=== PATIENT | male | born 1970 | race Caucasian/White ===

== ENCOUNTER 2018-01-15 22:34 | Emergency (ER) | payer BC, OTHER ==
--- NOTE | 2018-01-15 22:40 | EDM.PDOC ---
ED HPI GENERAL MEDICAL PROBLEM - General Stated Complaint: STROKE Time Seen by Provider: 01/15/18 22:40 Source of Information: Reports: Patient - History of Present Illness INITIAL COMMENTS - FREE TEXT/NARRATIVE: HISTORY AND PHYSICAL: History of present illness: [Patient presents via [facility], there were in route to [place] or [place] via helicopter however had to turn around due to fog/whether. Last known well time of the patient was 6:50pm. he arrived at our facility at 10:35pm, he was within the TPA window we did obtain CT head rapidly there are no findings on the noncontrasted head CT however his blood pressure was uncontrolled and quite high contraindicating TPA we did initiate labetalol 20 mg followed by 40 mg with a drip. Blood pressure was controlled cold within the TPA guidelines have high 170s over 109. This was achieved right at the 4-1/2 hour extended window the patient was offered TPA risks and benefits were discussed he refused TPA at that time. I had been in contact with Dr. Landin neurologist at [facility] around 11 PM he was in agreement with giving TPA if blood pressure can be controlled and would then be taking the patient however with the patient refusal for TPA he recommended CTA of the head with thromboembolic event suspected in basilar artery recommends transferring onto [place]. I did speak with Dr. Taylor neurosurgeon on-call at [facility] who would accept the patient, patient is agreeable to thrombectomy he is within the window for this procedure Current no fever nausea vomiting chills sweats no chest pain shortness breath headache dizziness or palpitation no bowel or urine symptoms Patient has been noncompliant with medications he admits to dyslipidemia states he has no other history of chronic illness or disease denies medications or surgical procedures Review of systems: As per history of present illness and below otherwise all systems reviewed and negative. Past medical history: As per history of present illness and as reviewed below otherwise noncontributory. Surgical history: As per history of present illness and as reviewed below otherwise noncontributory. Social history: No reported history of drug or alcohol abuse. Family history: As per history of present illness and as reviewed below otherwise noncontributory. Physical exam: HEENT: Atraumatic, normocephalic, pupils reactive, negative for conjunctival pallor or scleral icterus, mucous membranes moist, throat clear, neck supple, nontender, trachea midline. Lungs: Clear to auscultation, breath sounds equal bilaterally, chest nontender. Heart: S1S2, regular, negative for clicks, rubs, or JVD. Abdomen: Soft, nondistended, nontender. Negative for masses or hepatosplenomegaly. Negative for costovertebral tenderness. Pelvis: Stable nontender. Genitourinary: Deferred. Rectal: Deferred. Extremities: Atraumatic, negative for cords or calf pain. Neurovascular unremarkable. Neuro: Awake, alert, oriented. Cranial nerve VII weakness on right right upper extremity flaccid paralysis 4 out of 5 weakness right lower extremity Cerebellum unremarkable. Motor and sensory unremarkable throughout. Exam nonfocal. Diagnostics: [CBC CMP UA troponin INR EKG Chest [address] no contrast CTA head CTA neck ] Therapeutics: [Labetalol 20 mg IV per [employer] per my instruction Labetalol 40 mg IV now Labetalol drip ] Impression: Right upper extremity flaccid paralysis Dysarthria Right lower extremity weakness Stroke scale 12 Patient will be transferred by [facility] fixed wing to [facility] Dr. Buenrostro Definitive disposition and diagnosis as appropriate pending reevaluation and review of above. Head Pain Score (Numeric/FACES): 5 - Related Data Allergies Allergy/AdvReac Type Severity Reaction Status Date / Time No Known Allergies Allergy Verified 01/15/18 23:09 Home Meds: Home Meds . [No Known Home Meds] 01/15/18 [History] ED ROS GENERAL - Review of Systems Review Of Systems: ROS reveals no pertinent complaints other than HPI. ED EXAM, GENERAL - Physical Exam Exam: See Below Course - Vital Signs Last Recorded V/S: Last Vital Signs Temp 98.1 F 01/15/18 22:37 Pulse 74 01/15/18 23:40 Resp 18 01/15/18 23:40 BP 194/119 H 01/15/18 23:40 Pulse Ox 97 01/15/18 23:40 - Orders/Labs/Meds Orders: Active Orders 24 hr Category Date Time Status EKG Documentation Completion [RC] STAT Care 01/15/18 22:37 Active Ang Head [CT] Stat Exams 01/15/18 23:40 Taken CTA Neck W & W/O Contrast [Ang Neck] [CT] Stat Exams 01/15/18 23:40 Taken Chest 1V Frontal [CR] Stat Exams 01/15/18 22:37 Taken Head wo Cont [CT] Stat Exams 01/15/18 22:37 Taken Labetalol [Normodyne] 100 mg Med 01/15/18 23:00 Active Sodium Chloride 0.9% [Normal Saline] 80 ml IV TITRATE niCARdipine/Normal Saline [Cardene 20 MG in NS 200 ML] Med 01/15/18 23:30 Active 20 mg in 200 ml IV TITRATE Medication Orders Labetalol HCl 100 mg/ Sodium (Chloride) 100 mls @ 30 mls/hr IV TITRATE TASHA; 0.5 MG/MIN PRN Reason: Protocol Last Admin: 01/15/18 23:10 Dose: 0.5 mg/min, 30 mls/hr Nicardipine HCl (Cardene 20 Mg In Ns 200 Ml) 20 mg in 200 mls @ 50 mls/hr IV TITRATE TASHA; 5 MG/HR PRN Reason: Protocol Last Admin: 01/15/18 23:24 Dose: 5 mg/hr, 50 mls/hr Labs: Laboratory Tests 01/15/18 01/15/18 01/15/18 Range/Units 21:25 22:36 22:36 WBC 14.93 H (4.0-11.0) K/uL RBC 5.43 (4.50-5.90) M/uL Hgb 16.7 (13.0-17.0) g/dL Hct 48.2 (38.0-50.0) % MCV 88.8 (80.0-98.0) fL MCH 30.8 (27.0-32.0) pg MCHC 34.6 (31.0-37.0) g/dL RDW Std Deviation 43.5 (28.0-62.0) fl RDW Coeff of [place] 14 (11.0-15.0) % Plt Count 233 (150-400) K/uL MPV 10.80 (7.40-12.00) fL Neut % (Auto) 76.8 (48.0-80.0) % Lymph % (Auto) 15.7 L (16.0-40.0) % [place] % (Auto) 6.1 (0.0-15.0) % Eos % (Auto) 1.1 (0.0-7.0) % Baso % (Auto) 0.3 (0.0-1.5) % Neut # (Auto) 11.5 H (1.4-5.7) K/uL Lymph # (Auto) 2.3 (0.6-2.4) K/uL [place] # (Auto) 0.9 H (0.0-0.8) K/uL Eos # (Auto) 0.2 (0.0-0.7) K/uL Baso # (Auto) 0.0 (0.0-0.1) K/uL Nucleated RBC % 0.0 /100WBC Nucleated RBCs # 0 K/uL INR 0.98 Sodium (136-148) mmol/L Potassium (3.5-5.1) mmol/L Chloride (98-107) mmol/L Carbon Dioxide (21.0-32.0) mmol/L BUN (7.0-18.0) mg/dL Creatinine (0.8-1.3) mg/dL Est Cr Clr Drug Dosing Estimated GFR (MDRD) ml/min Glucose (74-106) mg/dL Calcium (8.5-10.1) mg/dL Total Bilirubin (0.2-1.0) mg/dL AST (15-37) IU/L ALT (14-63) IU/L Alkaline Phosphatase (46-116) U/L Troponin I (0.000-0.056) ng/mL Total Protein (6.4-8.2) g/dL Albumin (3.4-5.0) g/dL Globulin (2.0-3.5) g/dL Albumin/Globulin Ratio (1.3-2.8) Urine Color YELLOW Urine Appearance CLEAR Urine pH 6.0 (5.0-8.0) Ur Specific [place] 1.025 (1.001-1.035) Urine Protein TRACE (NEGATIVE) mg/dL Urine Glucose (UA) 250 H (NEGATIVE) mg/dL Urine Ketones NEGATIVE (NEGATIVE) mg/dL Urine Occult Blood NEGATIVE (NEGATIVE) Urine Nitrite NEGATIVE (NEGATIVE) Urine Bilirubin NEGATIVE (NEGATIVE) Urine Urobilinogen 0.2 (<2.0) EU/dL Ur Leukocyte Esterase NEGATIVE (NEGATIVE) Urine RBC 0-2 (0-2/HPF) Urine WBC 0-1 (0-5/HPF) Ur Epithelial Cells RARE (NONE-FEW) Urine Bacteria FEW (NEGATIVE) 01/15/18 Range/Units 22:36 WBC (4.0-11.0) K/uL RBC (4.50-5.90) M/uL Hgb (13.0-17.0) g/dL Hct (38.0-50.0) % MCV (80.0-98.0) fL MCH (27.0-32.0) pg MCHC (31.0-37.0) g/dL RDW Std Deviation (28.0-62.0) fl RDW Coeff of [place] (11.0-15.0) % Plt Count (150-400) K/uL MPV (7.40-12.00) fL Neut % (Auto) (48.0-80.0) % Lymph % (Auto) (16.0-40.0) % [place] % (Auto) (0.0-15.0) % Eos % (Auto) (0.0-7.0) % Baso % (Auto) (0.0-1.5) % Neut # (Auto) (1.4-5.7) K/uL Lymph # (Auto) (0.6-2.4) K/uL [place] # (Auto) (0.0-0.8) K/uL Eos # (Auto) (0.0-0.7) K/uL Baso # (Auto) (0.0-0.1) K/uL Nucleated RBC % /100WBC Nucleated RBCs # K/uL INR Sodium 139 (136-148) mmol/L Potassium 4.0 (3.5-5.1) mmol/L Chloride 105 (98-107) mmol/L Carbon Dioxide 23.3 (21.0-32.0) mmol/L BUN 11 (7.0-18.0) mg/dL Creatinine 1.1 (0.8-1.3) mg/dL Est Cr Clr Drug Dosing TNP Estimated GFR (MDRD) > 60.0 ml/min Glucose 182 H (74-106) mg/dL Calcium 9.0 (8.5-10.1) mg/dL Total Bilirubin 0.3 (0.2-1.0) mg/dL AST 27 (15-37) IU/L ALT 45 (14-63) IU/L Alkaline Phosphatase 95 (46-116) U/L Troponin I < 0.050 (0.000-0.056) ng/mL Total Protein 7.3 (6.4-8.2) g/dL Albumin 3.8 (3.4-5.0) g/dL Globulin 3.5 (2.0-3.5) g/dL Albumin/Globulin Ratio 1.1 L (1.3-2.8) Urine Color Urine Appearance Urine pH (5.0-8.0) Ur Specific [place] (1.001-1.035) Urine Protein (NEGATIVE) mg/dL Urine Glucose (UA) (NEGATIVE) mg/dL Urine Ketones (NEGATIVE) mg/dL Urine Occult Blood (NEGATIVE) Urine Nitrite (NEGATIVE) Urine Bilirubin (NEGATIVE) Urine Urobilinogen (<2.0) EU/dL Ur Leukocyte Esterase (NEGATIVE) Urine RBC (0-2/HPF) Urine WBC (0-5/HPF) Ur Epithelial Cells (NONE-FEW) Urine Bacteria (NEGATIVE) Meds: Medications Generic Name Dose Route Start Last Admin Trade Name Freq PRN Reason Stop Dose Admin Labetalol HCl 100 mg/ Sodium 100 mls @ 30 mls/hr 01/15/18 23:00 01/15/18 23: 10 Chloride IV 0.5 mg/min TITRATE TASHA 30 mls/hr Protocol Administration 0.5 MG/MIN Nicardipine HCl 20 mg in 200 mls @ 50 mls/hr 01/15/18 23:30 01/15/18 23:24 Cardene 20 Mg In Ns 200 Ml IV 5 mg/hr TITRATE TASHA 50 mls/hr Protocol Administration 5 MG/HR Discontinued Medications Generic Name Dose Route Start Last Admin Trade Name Freq PRN Reason Stop Dose Admin Alteplase, Recombinant Confirm 01/15/18 22:40 Activase Administered 01/15/18 22:41 Dose 100 mg .ROUTE .STK-MED ONE Nicardipine HCl Confirm 01/15/18 23:23 01/15/18 23:30 Cardene 20 Mg In Ns 200 Ml Administered 01/15/18 23:24 Not Given Dose 20 mg in 200 mls @ as directed .ROUTE .STK-MED ONE Labetalol HCl 40 mg 01/15/18 23:01 01/15/18 23:29 Normodyne IVPUSH 01/15/18 23:02 Not Given NOW ONE Protocol Labetalol HCl Confirm 01/15/18 23:02 01/15/18 23:15 Normodyne Administered 01/15/18 23:03 40 mg Dose Administration 100 mg .ROUTE .STK-MED ONE Departure - Departure Time of Disposition: 01:20 Disposition: DC/Tfer to Other 70 Condition: Poor Clinical Impression: Stroke - Discharge Information - My Orders Last 24 Hours: My Active Orders 01/15/18 22:37 EKG Documentation Completion [RC] STAT Chest 1V Frontal [CR] Stat Head wo Cont [CT] Stat 01/15/18 23:00 Labetalol [Normodyne] 100 mg Sodium Chloride 0.9% [Normal Saline] 80 ml IV TITRATE 01/15/18 23:30 niCARdipine/Normal Saline [Cardene 20 MG in NS 200 ML] 20 mg in 200 ml IV TITRATE 01/15/18 23:40 Ang Head [CT] Stat CTA Neck W & W/O Contrast [Ang Neck] [CT] Stat - Assessment/Plan Last 24 Hours: My Active Orders 01/15/18 22:37 EKG Documentation Completion [RC] STAT Chest 1V Frontal [CR] Stat Head wo Cont [CT] Stat 01/15/18 23:00 Labetalol [Normodyne] 100 mg Sodium Chloride 0.9% [Normal Saline] 80 ml IV TITRATE 01/15/18 23:30 niCARdipine/Normal Saline [Cardene 20 MG in NS 200 ML] 20 mg in 200 ml IV TITRATE 01/15/18 23:40 Ang Head [CT] Stat CTA Neck W & W/O Contrast [Ang Neck] [CT] Stat
[2018-01-15] MEDS ORDERED: Labetalol 100 MG in Sodium Chloride 0.9% 80 ML IV SCH (23:00)
[2018-01-15] MEDS ORDERED: Labetalol 20 MG/4 ML Syringe IVPUSH ONE (23:01)
[2018-01-15] MEDS ORDERED: Labetalol 100 MG/20 ML MDV ONE (23:02)
[2018-01-15 23:09] LABS: CHLORIDE,CL 105 mmol/L (98-107); SODIUM,NA 139 mmol/L (136-148)
[2018-01-15] MEDS ORDERED: niCARdipine/Normal Saline 20 MG/200 ML BAG ONE (23:23)
[2018-01-15] MEDS ORDERED: niCARdipine/Normal Saline 20 MG/200 ML BAG IV SCH (23:30)
--- NOTE | 2018-01-16 11:30 | CT ---
EXAM DATE: 01/15/18 PATIENT'S AGE: 47 Patient: BILLY VALVERDE Facility: [place], [place] Site . Site : 1970 Study: CT Head STROKE PROTOCOL STROKE-01/15/2018 10:47:48 PM Ordering Physician: RAUL Final Report: INDICATION: Acute stroke symptoms TECHNIQUE: CT head without contrast. COMPARISON: None. FINDINGS: CSF spaces: Within normal limits for age. Brain parenchyma: The carr-white differentiation is normal. No sign of mass, hemorrhage, or midline shift. Skull base and calvarium: The visualized paranasal sinuses and mastoid air cells demonstrate no acute or significant findings. The visualized orbits are grossly unremarkable. No skull fractures. IMPRESSION: Unremarkable noncontrast head CT. No sign of CVA or other significant finding. Dictated by Jeferson Granados MD @ 01/15/2018 11:01:39 PM Dictated by: Jeferson Granados MD @ 01/15/2018 23:01:45 (Electronic Signature) Report Signed by Proxy. GISELA
--- NOTE | 2018-01-16 11:33 | CR ---
EXAM DATE: 01/15/18 PATIENT'S AGE: 47 Patient: BILLY VALVERDE Facility: [place], [place] Site . Site : 1970 Study: XRay Chest [id number]/21/[id number] 11:16:39 PM Ordering Physician: Doctor Olea Final Report: INDICATION: Possible stroke. TECHNIQUE: Chest 1 view COMPARISON: None FINDINGS: Cardiovascular and mediastinum: Heart size and vasculature are normal in caliber and appearance. Lungs and pleural spaces: Lungs are clear. No sign of infiltrate or mass. No sign of pleural effusion. No pneumothorax. Bones and soft tissues: No significant findings. IMPRESSION: No acute or significant findings. Dictated by Jeferson Granados MD @ Jan 15 2018 11:27PM (Electronic Signature) Report Signed by Proxy. GISELA
--- NOTE | 2018-01-16 11:40 | CT ---
EXAM DATE: 01/15/18 PATIENT'S AGE: 47 Patient: BILLY VALVERDE Facility: [place], [place] Site . Site : 1970 Study: CT Head Angio [id number]/22/2018 12:34:23 AM Ordering Physician: Betito Feldman Final Report: INDICATION: Right-sided weakness, slurred speech. TECHNIQUE: High-resolution axial CT images were acquired through the head and neck following the rapid intravenous administration of iodinated contrast. Multiplanar MIPS of the cranial and cervical vasculature were performed as well. 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 The top of the basilar artery fills via collaterals. The anterior circulation fills normally. There are mild stenoses of the ophthalmic left ICA and intracranial left vertebral artery. The underlying brain parenchyma is unremarkable at CTA. In the neck, there is no significant carotid or vertebral artery stenosis or dissection. The soft tissues of the neck are within normal limits. Degenerative changes are incidentally noted in the cervical spine. Scarring is present at the lung apices. IMPRESSION: Acute basilar artery occlusion. Dr. Lau discussed the preliminary findings with Dr. Cisse at 12:49 a.m. on 01/16/2018. Please note that all CT scans at this facility use dose modulation, iterative reconstruction, and/or weight-based dosing when appropriate to reduce radiation dose to as low as reasonably achievable. Dictated by Julius Albrecht MD @ Jan 16 2018 9:34AM (Electronic Signature) Report Signed by Proxy. GISELA
--- NOTE | 2018-01-16 11:41 | CT ---
EXAM DATE: 01/15/18 PATIENT'S AGE: 47 Patient: BILLY VALVERDE Facility: [place], [place] Site . Site : 1970 Study: CT Neck Angio Angio [id number]/22/2018 12:38:25 AM Ordering Physician: Betito Feldman Final Report: INDICATION: Right-sided weakness, slurred speech. TECHNIQUE: High-resolution axial CT images were acquired through the head and neck following the rapid intravenous administration of iodinated contrast. Multiplanar MIPS of the cranial and cervical vasculature were performed as well. 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 The top of the basilar artery fills via collaterals. The anterior circulation fills normally. There are mild stenoses of the ophthalmic left ICA and intracranial left vertebral artery. The underlying brain parenchyma is unremarkable at CTA. In the neck, there is no significant carotid or vertebral artery stenosis or dissection. The soft tissues of the neck are within normal limits. Degenerative changes are incidentally noted in the cervical spine. Scarring is present at the lung apices. IMPRESSION: Acute basilar artery occlusion. Dr. Lau discussed the preliminary findings with Dr. Cisse at 12:49 a.m. on 01/16/2018. Please note that all CT scans at this facility use dose modulation, iterative reconstruction, and/or weight-based dosing when appropriate to reduce radiation dose to as low as reasonably achievable. Dictated by Julius Albrecht MD @ Jan 16 2018 9:44AM (Electronic Signature) Report Signed by Proxy. GISELA
== END 2018-01-16 01:30 | disposition other institution (70) ==
LOC: MW.ED 22:34
DX: I63.9 Cerebral infarction, unspecified (principal); G81.01 Flaccid hemiplegia affecting right dominant side; R29.712 NIHSS score 12
CPT/HCPCS: 36415; 70450; 70496; 70498; 71045; 80053; 81001; 84484; 85025; 85610; 93005; 96365; 96366; 96374; 99291; J7030; 99285